=== PATIENT | female | born 1995 | race Caucasian/White ===

== ENCOUNTER 2016-09-18 11:59 | Outpatient (CLI) | payer OTHER ==
[~2016-09-18] VITALS: Ht 165.1 cm; Wt 102.0 kg
[2016-09-18 12:17] VITALS: Ht 165.1 cm; Wt 102.0 kg
[2016-09-18 12:49] LABS: ADD UMIC YES; URINE BILIRUBIN (Dip) NEGATIVE (NEGATIVE); URINE BLOOD (Dip) NEGATIVE (NEGATIVE); URINE COLOR LT. YELLOW (YELLOW); URINE GLUCOSE (Dip) NEGATIVE (NEGATIVE); URINE KETONES (Dip) NEGATIVE (NEGATIVE); URINE LEUKOCYTE ESTERASE (Dip) TRACE (NEGATIVE); URINE NITRITE (Dip) NEGATIVE (NEGATIVE); URINE TOTAL PROTEIN (Dip) NEGATIVE (NEGATIVE); URINE UROBILINOGEN (Dip) 0.2 E.U./dL (0.1-1.0)
[2016-09-18 13:06] LABS: BACTERIA,URINE MODERATE
--- NOTE | 2016-09-18 13:48 | RADRPT ---
PROCEDURE: Limited US OB. CLINICAL INDICATION: Cervical length. TECHNIQUE: Transabdominal and transvaginal views of the pelvis are available for review. COMPARISON: No prior studies are available for comparison. FINDINGS: Cervical length: 4.3 cm. Placenta: Posterior. Grade 1. The distance from the close cervix is approximately 5.0 cm. Placenta previa: No.. Presentation:Cephalic heart rate:162 beats per minute. Amniotic fluid volume: Normal. Ultrasound estimated gestational age:Not calculated. No ovarian or adnexal mass lesion is seen. There is no free fluid. IMPRESSION: 1. Cervical length: RPTAT:AAJJ Physician Bolivar Date Time Electronically viewed and signed by Physician Bolivar on 09/18/2016 13:48 /
--- NOTE | 2016-09-18 14:16 | TRIAGE ---
OB Triage Datetime Report Generated by CPN: 09/18/2016 14:16 Datetime: 09/18/2016 13:08 Heart Rate Comments: U/S DONE Datetime: 09/18/2016 13:03 Heart Rate Comments: PT RESTING .FRIEND AT BED SIDE Datetime: 09/18/2016 12:24 Heart Rate Comments: DR LESLIE WAS INFORMED AND ORDERS RECEIVED Datetime: 09/18/2016 12:16 Stage of : OB Triage Maternal Assessment Level of Consciousness: Fully Conscious DTR's/Clonus: DTRs 2+; No Clonus Headache: Denies Blurred Vision: No Respiratory Effort: Unlabored; Regular Rhythm; Equal Expansion Breath Sounds, Left: Clear and Equal Breath Sounds, Right: Clear and Equal Nausea/Vomiting: Denies RUQ Epigastric Pain: Denies Lower Extremities Edema: None Degree: None Upper Extremities Edema: None Degree: None Facial Edema: None Temperature Route: Axillary Fall Risk Assessment History of Falling: (0) No Secondary Diagnosis: (0) No Ambulatory Aid: (0) Bedrest/Nurse Assist IV Therapy: (0) No Gait: (0) Normal/Bedrest/Immobile Mental Status: (0) Oriented to Own Ability Fall Score: 0 Fall Risk Score Definition: No Risk: No action required Datetime: 09/18/2016 12:15 Time of Arrival: 09/18/2016 12:15 EGA: 20.2 Arrived By: Wheelchair Arrived From: Home Chief Complaint: LOWER ABD.PAIN Movement: Present Contractions: Denies/Absent Rupture of Membranes: Denies Vaginal Bleeding: None Vaginal Discharge: Denies Recent Sexual Intercouse: Denies Abdominal Trauma: Not Applicable Patient Complaints: Other Time Provider Notified: 09/18/2016 12:32 Provider Notified: VINCENT Initial Plan: EFM Datetime: 09/18/2016 12:14 Heart Rate Comments: PT ESCORTED FROM.E.R NO BLEEDING OR LEAKING PRESENT .PT SAYS SHE FEELS BABY MOVING.SCHE C/O LOWER ABD PAIN FROM 2 DAYS.SHE WAS TREATED FOR UTI A MONTH AGO PER PT.
--- NOTE | 2016-09-18 15:36 | QN ---
Documentation Comment iup 20 weeks some mild abd pain vss exam wnl abd soft nt no rebound us wnl cl wnl ap false labor uti-macrobid fu with obgyn in 2-3 days TAWANA LESLIE MD Sep 18, 2016 15:36
== END 2016-09-18 14:10 | disposition home or self-care (01) ==
LOC: OBT 11:59 → L-D 12:13 → OBT 14:10
DX: O26.892 Other specified pregnancy related conditions, second trimester (principal); Z3A.20 20 weeks gestation of pregnancy
CPT/HCPCS: 76817; 81001; Z7500; G0463